=== PATIENT | female | born 1985 | race Hispanic/Latino ===

== ENCOUNTER 2019-01-02 10:28 | Emergency (ER) | payer SELFPAY ==
[2019-01-02] MEDS ORDERED: Ondansetron PF 4 MG/2 ML Vial ONE (10:47)
[2019-01-02] MEDS ORDERED: Morphine 4 MG/ML VIAL ONE (10:47)
[2019-01-02 11:08] LABS: #Basophils 0.1 thou/uL (0.0-0.2); #Eosinphils 0.1 thou/uL (0.0-0.7); #Lymphocytes 2.3 thou/uL (1.20-3.40); #Monocytes 0.6 thou/uL (0.11-0.59); #Neutrophils 5.4 thou/uL (1.40-6.50); %Basophils 0.8 % (0.0-1.0); %Eosinophils 1.4 % (0.0-10.0); %Lymphocytes 27.1 % (21.0-51.0); %Monocytes 6.8 % (0.0-10.0); Hemoglobin 11.6 g/dL (12.0-16.0); Mean Corpuscular HGB CONC 33.2 g/dL (32.0-36.0); Mean Corpuscular Hemoglobin 32.9 pg (27.0-31.0); Mean Corpuscular Volume 99.2 fL (78.0-98.0); Mean Platelet Volume 8.6 fL (7.4-10.4); Platelet Count 234 thou/uL (130-400); RBC Distribution Width 11.8 % (11.5-14.5); Red Blood Cell (RBC) Count 3.53 mill/uL (4.20-5.40); White Blood Cell (WBC) Count 8.5 thou/uL (4.8-10.8)
[2019-01-02 11:25] LABS: ALT (SGPT) 13 U/L (8-55); AST (SGOT) 11 U/L (5-34); Albumin 3.9 g/dL (3.5-5.0); Alkaline Phosphatase 40 U/L (40-150); Anion Gap 9 mmol/L (10-20); BUN (Urea Nitrogen) 12 mg/dL (7.0-18.7); Bilirubin, Total 0.5 mg/dL (0.2-1.2); Calc. Creatinine Clearance 0 mL/min (70-130); Calcium 8.9 mg/dL (7.8-10.44); Carbon Dioxide 24 mmol/L (22-29); Chloride 107 mmol/L (98-107); Estimated GFR-MDRD 88; Globulin 2.5 g/dL (2.4-3.5); Glucose 158 mg/dL (70-105); Lipase 31 U/L (8-78); Potassium 4.1 mmol/L (3.5-5.1); Protein, Total 6.4 g/dL (6.0-8.3); Sodium 136 mmol/L (136-145)
[2019-01-02 11:49] LABS: Bilirubin Negative (Negative); Blood, Urine Negative (Negative); Clarity CLEAR (Clear); Glucose, Urine (Dipstick) Negative (Negative); Leukocyte Negative (Negative); Nitrite Negative (Negative); Protein, Urine (Dipstick) Negative (Neg-Trace); Specific Gravity, Urine 1.009 (1.002-1.036); Urobilinogen 0.2 mg/dL (0.2-1.0)
[2019-01-02 11:54] LABS: Pregnancy Test - Urine (BHCG) Negative (Negative); Pregu Control Background? CLEAR/WHITE (CLR/WHITE); Pregu Control Bar Appear? YES (CONTROL BAR); Specific Gravity 1.009 (1.002-1.036)
--- NOTE | 2019-01-02 12:25 | CT ---
FCT of abdomen and pelvis: 01/02/2019 COMPARISON: None HISTORY: Right upper quadrant pain TECHNIQUE: Axial CT imaging at 5 mm intervals from lung bases through pubic symphysis with IV contras t. Coronal reformatted imaging obtained. FINDINGS: Minimal linear density in posterior aspect left lower lobe suggesting volume loss. No free intraperitoneal air. The liver, gallbladder, spleen, pancreas, adrenal glands, and kidneys demonstrate no acute findings. Noncalcified cholesterol gallstones cannot be excluded via CT. 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 There is a small amount of free fluid in the pelvic cul-de-sac on the right. Limited assessment of the bowel without oral contrast appears unremarkable. The appendix appears unre markable. The endometrium appears prominent, please correlate with phase of menstrual cycle. Vascular structures of the abdomen/pelvis appear patent. No lymphadenopathy is noted. No acute osseous abnormality. IMPRESSION: Incidental findings as detailed above. No evidence for free intraperitoneal air or bowel obstruction.
[2019-01-02] MEDS ORDERED: ISOVUE-370 76%-LOCM 1 ML ONE (15:20)
== END 2019-01-02 13:27 | disposition home or self-care (01) ==
LOC: ERS 10:28
DX: K80.50 Calculus of bile duct without cholangitis or cholecystitis without obstruction (principal)
CPT/HCPCS: 74177; 80053; 81003; 81025; 83690; 85025; 96374; 96375; J2270; J2405; Q9966